=== PATIENT | male | born 1955 | race Caucasian/White ===

== ENCOUNTER 2021-10-22 07:45 | Emergency (ER) | payer MEDICARE, MEDICAID, SELFPAY ==
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
[2021-10-22 08:07] LABS: Glucose, Whole Blood 136 mg/dL (60-115)
--- NOTE | 2021-10-22 08:16 | PC.NURSE ---
donor services contacted, case # [id number]
--- NOTE | 2021-10-22 08:31 | PC.NURSE ---
TIME OF IS [address] ELLIOTT AND RN PCP/DR GERA CARPENTER OFFICE ANSWERING SERVICE CALLED TO MAKE THEM AWARE OF @ [phone]
--- NOTE | 2021-10-22 08:34 | PC.NURSE ---
@0833 [facility] CALLED [facility],TAKES PTS AGE AND CALL BACK NUMBER THEN SAYS HE NEEDS TO CALL BACK IN 5-10 MINUTES
--- NOTE | 2021-10-22 09:36 | PC.NURSE ---
@ 8796 RETURN ROBIN FROM [facility] OF [facility] OFFICE ASKED FOR PT DEMOGRAPHICS AND TO SPEAK WITH DR EARL ELLIOTT TOOK OVER CALL RIGHT AWAY PER DR ELLIOTT [facility] TO CALL BACK WITH DECISION
--- NOTE | 2021-10-22 10:00 | PC.NURSE ---
@ 7955 [facility] FROM [facility] CALLS FOR HARRISON TERRY TAKES OVER CALL RIGHT AWAY @1000 RETURN CALL FROM [facility] OF [facility] OFFICE ASKING TO SPEAK WITH DR EARL ELLIOTT TAKES OVER CALL RIGHT AWAY THEN TELLS ME THIS CASE WAS ACCEPTED BY THE ASSISTANT COOK GIVING THE
--- NOTE | 2021-10-22 10:05 | PC.NURSE ---
DR VALENCIA ISBELL IS ACCEPTING [employer] WORKER PER DR ELLIOTT
--- NOTE | 2021-10-22 11:47 | PC.NURSE ---
TO AKASH WITH PCT'S MAGDIEL AND DILCIA @ THIS TIME
== END 2021-10-22 11:47 | disposition expired ==
LOC: HO.ED 08:40
PROVIDERS: Emergency Provider Emergency Medicine; PCP Internal Medicine
DX: T17.920A Food in respiratory tract, part unspecified causing asphyxiation, initial encounter (principal); I46.8 Cardiac arrest due to other underlying condition; Y92.041 Bathroom in boarding-house as the place of occurrence of the external cause; G31.84 Mild cognitive impairment of uncertain or unknown etiology; F50.89 Other specified eating disorder; F41.9 Anxiety disorder, unspecified
CPT/HCPCS: 31500; 82947; 96374; 96375; 99281; 99285; J0171